=== PATIENT | male | born 1950 | race Caucasian/White ===

== ENCOUNTER → 2020-12-28 | Outpatient (CLI) | payer OTHER ==
[~2020-12-28] MED LIST: COMBIGAN EYE DR10 ML OPHTHALMIC; VYZULTA5 ML OPHTHALMIC
== END ==
LOC: LAB 10:02
PROVIDERS: ATTEND Student in an Organized Health Care Education/Training Program
DX: U07.1 COVID-19 (principal); Z01.812 Encounter for preprocedural laboratory examination